=== PATIENT | female | born 1995 | race Caucasian/White ===

== ENCOUNTER 2020-02-14 21:42 | Emergency (ER) | payer OTHER, SELFPAY ==
--- NOTE | ~2020-02-14 | XR_ITS ---
EXAMINATION: XR chest 2V EXAM DATE: 02/14/2020 22:28 INDICATION: Cough for 2 weeks. Congestion. History of asthma. TECHNIQUE: Frontal and lateral projections of the chest obtained and reviewed. There is no prior arun dy for comparison. FINDINGS: The lungs are clear. There are no pleural effusions. The cardiomediastinal silhouette is within normal limits. There is no pneumothorax suspected. The bones and soft tissues are unremarkab le. IMPRESSION: Normal chest x-ray exam. Reviewed, dictated and finalized at location G. IMPRESSION: Normal chest x-ray exam.
[2020-02-14 21:44] VITALS: BP 109/94; PULSE 83; RESP 16; TEMP 36.6; O2SAT 100
[2020-02-14 23:28] VITALS: BP 130/66; PULSE 61; RESP 18; TEMP 36.8; O2SAT 100
--- NOTE | 2020-02-14 23:49 | ED.GENADULT ---
HPI - General Adult General Chief complaint: Unspecified Stated complaint: COUGH X 2 WKS Time Seen by Provider: 02/14/20 23:07 Source: patient Mode of arrival: ambulatory Limitations: no limitations History of Present Illness HPI narrative: This patient is a 24 yo female who presents for evaluation of cough x 2 weeks. PAtient states she has had cough that is intermittently productive for 2 weeks. She also has sinus congestion and drainage. she has been taking over the counter cough medication, claritin and nasal spray without relief. She has a rescue inhaler but she only uses it at night. She denies having wheezing. She denies fever, chills, nausea or vomiting. Onset (ago): week(s) Related Data Allergies Allergy/AdvReac Type Severity Reaction Status Date / Time amoxicillin Allergy Unknown Swelling Verified 02/14/20 22:02 naproxen Allergy Unknown Nausea and Verified 02/14/20 22:02 Vomiting Penicillins Allergy Unknown Swelling Verified 02/14/20 22:02 tramadol Allergy Loss of Verified 02/14/20 22:02 Consciousness Bumble Bee Allergy Unknown Anaphylactic Uncoded 02/14/20 22:02 Shock Wasp Allergy Unknown Anaphylactic Uncoded 02/14/20 22:02 Shock Review of Systems Review of Systems: All systems reviewed & are unremarkable except as noted in HPI and below Constitutional: Constitutional: Denies chills and Denies fever(s) ENT: Reports nasal congestion and Reports nasal discharge Cardiovascular: Cardiovascular: Denies chest pain Respiratory: Respiratory: Reports cough, Denies dyspnea and Denies wheezing Gastrointestinal: Gastrointestinal: Denies abdominal pain and Denies nausea PMFSH Past Medical History Medical History (Updated 02/14/20 @ 23:54 by Colette Snell MD) Asthma Social History Social History (Updated 02/14/20 @ 23:50 by Colette Snell MD) Smoking status: Never smoker Exam Narrative: Exam Narrative: GENERAL: Well-appearing, well-nourished, and in no acute distress. HEAD: Normocephalic, atraumatic EYES: PERRLA and EOMI, conjunctiva clear without discharge NOSE: Nares clear, no rhinorrhea or epistaxis THROAT:Mucous membranes moist, Oropharynx normal without erythema, exudate, peritonsillar swelling or fluctuance NECK: Supple, without lymphadenopathy or mass RESPIRATORY: No respiratory distress, Airway patent, Respirations non-labored, Clear to auscultation without rales, rhonchi or wheeze HEART: Regular rate and rhythm. No murmur heard. Normal peripheral pulses. ABDOMEN: Soft, nontender, nondistended, normal active bowel sounds. No masses. No rebound or guarding, No organomegaly. EXTREMITIES: No edema, normal strength with full range of motion. SKIN: Warm, dry, normal color without rash NEURO: Alert and oriented x3. CN 2-12 grossly intact. No focal deficits. PSYCH: Normal mood and affect. Course Vital Signs Vital signs: Vital Signs Temperature 97.8 F 02/14/20 21:44 Pulse Rate 83 02/14/20 21:44 Respiratory Rate 16 02/14/20 21:44 Blood Pressure 109/94 H 02/14/20 21:44 Pulse Oximetry 100 02/14/20 21:44 Temperature 98.3 F 02/14/20 23:28 Pulse Rate 61 02/14/20 23:28 Respiratory Rate 18 02/14/20 23:28 Blood Pressure 130/66 02/14/20 23:28 Pulse Oximetry 100 02/14/20 23:28 Medical Decision Making Vital Signs Vital Signs: Vital Signs Temperature 97.8 F 02/14/20 21:44 Pulse Rate 83 02/14/20 21:44 Respiratory Rate 16 02/14/20 21:44 Blood Pressure 109/94 H 02/14/20 21:44 Pulse Oximetry 100 02/14/20 21:44 Temperature 98.3 F 02/14/20 23:28 Pulse Rate 61 02/14/20 23:28 Respiratory Rate 18 02/14/20 23:28 Blood Pressure 130/66 02/14/20 23:28 Pulse Oximetry 100 02/14/20 23:28 Imaging Data Radiologist's impression: ITS Impressions Chest X-Ray 02/14/20 22:34 IMPRESSION: Normal chest x-ray exam. Discharge Plan Discharge Clinical Impression: URI (upper respir
== END 2020-02-15 00:10 | disposition home or self-care (01) ==
PROVIDERS: Emergency Provider General Practice
DX: J06.9 Acute upper respiratory infection, unspecified (principal); J45.909 Unspecified asthma, uncomplicated
CPT/HCPCS: 71046; 99283

== ENCOUNTER 2021-06-24 21:36 | Emergency (ER) | payer OTHER, SELFPAY ==
--- NOTE | ~2021-06-24 | CT_ITS ---
EXAMINATION: CT soft tissue neck w con DATE: 06/25/2021 01:50 INDICATION: Left neck pain and swelling. TECHNIQUE: Computed tomography (CT) of the neck was performed with 75 mL Omnipaque-350 intravenous co ntrast. Automated exposure control and iterative reconstruction technique were employed. The dose-madi gth product was 457.20 mGy-cm. COMPARISON: None FINDINGS: There is mild mediastinal and left supraclavicular lymphadenopathy, likely reactive. The ad enoids and palatine tonsils are enlarged. The epiglottis is normal. The cervical carotid arteries are normal. The mastoid air cells are normal. There is complete opacification of right maxillary sinus a nd near complete opacification of the anterior right ethmoid sinuses and right frontal sinus. The tk th demonstrate multiple carious lesions. IMPRESSION: 1. Mild mediastinal and left supraclavicular lymphadenopathy, likely reactive. 2. Enlarged adenoids and palatine tonsils. No abscess. 3. Dental disease. 4. Sinus opacification in a pattern suggesting obstruction of the right ostiomeatal unit. Reviewed, dictated and finalized at location A. IMPRESSION: 1. Mild mediastinal and left supraclavicular lymphadenopathy, likely reactive. 2. Enlarged adenoids and palatine tonsils. No abscess. 3. Dental disease. 4. Sinus opacification in a pattern suggesting obstruction of the right ostiome atal unit.
[2021-06-24 21:49] VITALS: BP 138/83; PULSE 62; RESP 18; TEMP 36.4; O2SAT 100
[2021-06-24] MEDS: ORPHENADRINE CITRATE 100 MG TABLET.ER PO (23:05)
[2021-06-24] MEDS: KETOROLAC 30 MG/ML VIAL (*BKC) IV PUSH (23:05)
[2021-06-24 23:24] LABS: Alanine Aminotransferase 16 U/L (4-35); Albumin Level 4.4 g/dL (3.5-5.1); Alkaline Phosphatase 110 U/L (38-126); Anion Gap 9 mmol/L (8-16); Aspartate Amino Transferase 23 U/L (14-36); Bilirubin,Total 0.3 mg/dL (0.2-1.3); Blood Urea Nitrogen 11 mg/dL (7-17); Calcium 9.5 mg/dL (8.4-10.2); Carbon Dioxide 28 mmol/L (22-30); Chloride 104 mmol/L (98-107); Estimated CRCL calculation 110 ml/min; Estimated Glomerular Filt Rate > 60; Glucose 91 mg/dL (65-110); Potassium 3.7 mmol/L (3.4-5.0); Sodium 141 mmol/L (137-145)
[2021-06-24 23:24] LABS: Basophils Percent Auto 0.4 % (0.2-1.2); Eosinophils Absolute Auto 0.2 K/mm3 (0-0.3); Eosinophils Percent Auto 2.6 % (0-4.4); Hematocrit 35.1 % (37.0-47.0); Hemoglobin 11.3 g/dL (12.0-15.0); Immature Granulocyte Absolute 0.03 K/mm3 (0.00-0.031); Immature Granulocyte Percent A 0.4 % (0-0.5); Lymphocytes Absolute Auto 2.52 K/mm3 (0.9-3.2); Lymphocytes Percent Auto 34.3 % (18.3-44.2); Mean Corpuscular HGB Conc 32.2 g/dl (32-36); Mean Corpuscular Hemoglobin 25.8 pg (26-34); Mean Corpuscular Volume 80.1 fl (80-100); Mean Platelet Volume 9.3 fl (7.4-10.4); Monocytes Absolute Auto 0.5 K/mm3 (0.1-0.6); Monocytes Percent Auto 6.1 % (2.6-8.5); Neutrophils Absolute Auto 4.1 K/mm3 (1.3-6.7); Neutrophils Percent Auto 56.2 % (45.5-73.1); Platelet Count Result 326 k/mm3 (150-375); Red Blood Count 4.38 M/mm3 (4.2-5.4); Red Cell Distribution Width 14.3 % (11.5-14.5); White Blood Count 7.4 K/mm3 (4.5-10.0)
--- NOTE | 2021-06-24 23:41 | ED.GENADULT ---
HPI - General Adult General Chief complaint: Neck Pain/Injury <Lamberto Paiz MD - Last Filed: 06/24/21 23:43> Stated complaint: neck pain <Lamberto Paiz MD - Last Filed: 06/24/21 23:43> Time Seen by Provider: 06/24/21 22:00 <Lamberto Paiz MD - Last Filed: 06/24/21 23:43> History of Present Illness HPI narrative: Patient is a 26-year-old female presents to emergency department with chief complaint of left-sided neck pain. Patient reports that today she started having pain in the muscles in the left side of her neck reports she cannot turn her neck afterwards the patient denies fever reports that she feels as though serviceman knots in her neck could have appeared. The patient states she had no trauma denies fever denies sore throat. Patient denies dysphagia denies stridor. <Lamberto Paiz MD - Last Filed: 06/24/21 23:43> Related Data Allergies/adverse reactions: Allergies Allergy/AdvReac Type Severity Reaction Status Date / Time amoxicillin Allergy Unknown Swelling Verified 02/14/20 22:02 naproxen Allergy Unknown Nausea and Verified 02/14/20 22:02 Vomiting Penicillins Allergy Unknown Swelling Verified 02/14/20 22:02 tramadol Allergy Loss of Verified 02/14/20 22:02 Consciousness Bumble Bee Allergy Unknown Anaphylactic Uncoded 02/14/20 22:02 Shock Wasp Allergy Unknown Anaphylactic Uncoded 02/14/20 22:02 Shock <Lamberto Paiz MD - Last Filed: 06/24/21 23:43> Review of Systems Review of Systems: A 10 system review of systems was completed on the patient and is negative except for what is stated in the HPI. Nursing and ancillary documentation was reviewed. <Lamberto Paiz MD - Last Filed: 06/24/21 23:43> PMFSH Past Medical History Medical History: Medical History Asthma <Lamberto Paiz MD - Last Filed: 06/24/21 23:43> Social History Social History: Social History Smoking status: Never smoker <Lamberto Paiz MD - Last Filed: 06/24/21 23:43> Exam Narrative: GENERAL: Well-appearing, well-nourished, and in no acute distress. HEAD: Normocephalic, atraumatic. EYES: PERRLA and EOMI. ENT: Nares clear, no rhinorrhea or epistaxis. Mucous membranes moist. NECK: There is spasm present in the paraspinous muscles of the left side of the neck consistent with torticollis CHEST: Clear to auscultation. No respiratory distress. HEART: Regular rate and rhythm. No murmur heard. Normal peripheral pulses. ABDOMEN: Soft, nontender, nondistended, normal active bowel sounds. EXTREMITIES: Normal range of motion. No edema. SKIN: Warm, dry, no rash. NEURO: No focal deficits. Alert and oriented x3. PSYCH: Normal mood and affect. <Lamberto Paiz MD - Last Filed: 06/24/21 23:43> Course Vital Signs Vital signs: Vital Signs Temperature 36.4 C 06/24/21 21:49 Pulse Rate 62 06/24/21 21:49 Respiratory Rate 18 06/24/21 21:49 Blood Pressure 138/83 06/24/21 21:49 Pulse Oximetry 100 06/24/21 21:49 Temperature 36.4 C 06/24/21 21:49 Pulse Rate 62 06/24/21 21:49 Respiratory Rate 18 06/24/21 21:49 Blood Pressure 138/83 06/24/21 21:49 Pulse Oximetry 100 06/24/21 21:49 <Lamberto Paiz MD - Last Filed: 06/24/21 23:43> Medical Decision Making Vital Signs Vital Signs: Vital Signs Temperature 36.4 C 06/24/21 21:49 Pulse Rate 62 06/24/21 21:49 Respiratory Rate 18 06/24/21 21:49 Blood Pressure 138/83 06/24/21 21:49 Pulse Oximetry 100 06/24/21 21:49 Temperature 36.4 C 06/24/21 21:49 Pulse Rate 62 06/24/21 21:49 Respiratory Rate 18 06/24/21 21:49 Blood Pressure 138/83 06/24/21 21:49 Pulse Oximetry 100 06/24/21 21:49 <Lamberto Paiz MD - Last Filed: 06/24/21 23:43
[2021-06-25 01:03] LABS: Add Urine Microscopic? YES; Appearance Urine Cloudy (Clear); Bacteria Urine Trace /hpf; Bilirubin Urine Negative (Negative); Blood Urine Negative (Negative); Color Urine Yellow (Yellow); Glucose Urine UA Negative (Negative); Ketones Urine Negative (Negative); Leukocyte Esterase Ur Negative LEU/UL (Negative); Mucus Urine Few /lpf; Nitrate Urine Negative (Negative); Protein Urine Negative (Negative); Specific Grav Ur 1.026 (1.001-1.035); Squamous Epithelial Cell Urine Few /hpf (Few)
[2021-06-25] MEDS: HYDROcodone/acetaminophen (*CRX) 5-325 MG TABLET 1 TAB PO (01:26)
[2021-06-25 03:18] VITALS: BP 136/72; PULSE 62; RESP 16; O2SAT 100
== END 2021-06-25 03:28 | disposition home or self-care (01) ==
PROVIDERS: Emergency Medicine; Emergency Provider Emergency Medicine
DX: M43.6 Torticollis (principal); J45.909 Unspecified asthma, uncomplicated
CPT/HCPCS: 36415; 70491; 80053; 81001; 81025; 85025; 87081; 87880; 96374; 99284; A9270; J1885; Q9967

== ENCOUNTER 2021-07-13 12:47 | Emergency (ER) | payer OTHER, SELFPAY ==
--- NOTE | ~2021-07-13 | XR_ITS ---
XR chest 1V portable DATE: 07/13/2021 14:30 INDICATION: Chest pain, shortness of breath, cough, congestion, sore throat TECHNIQUE: Portable upright chronic AP chest on 07/23/2021 at 1422 hours COMPARISON: 02/14/2020 PA and lateral chest FINDINGS: No pulmonary infiltrate or consolidation, pleural effusion or pulmonary vascular congestion or pneumothorax is detected. The cardiac and mediastinal sweats and included skeletal structures are unremarkable. IMPRESSION: No active cardiopulmonary disease Reviewed, dictated and finalized at location A.
--- NOTE | ~2021-07-13 | CT_ITS ---
EXAMINATION: CTA chest PE protocol DATE: 07/13/2021 17:50 INDICATION: Shortness of breath. Elevated d-dimer. TECHNIQUE: Computed tomography (CT) pulmonary angiogram of the chest was performed with 100 mL Omnipa que-350 intravenous contrast. Additional 3D reconstructions utilizing coronal maximum intensity proje ction (MIP) were performed. Automated exposure control and iterative reconstruction technique were em ployed. The dose-length product was 478.13 mGy-cm. COMPARISON: CT neck dated 06/25/2021 FINDINGS: Good contrast opacification of the pulmonary arteries. There is mild streak artifact from dense contr ast in the superior vena cava and right atrium. No significant motion yielding diagnostic quality arun dy which demonstrates no pulmonary embolism. No pneumonia, pulmonary edema or other pulmonary infiltr ates. There are couple small triangular intrafissural lymph nodes along the right major fissure. No p leural effusion or pneumothorax. Heart size is normal. No pericardial effusion. Thoracic aorta is nor mal in caliber with no dissection. No pathologically enlarged thoracic lymphadenopathy. In seen is re sidual thymic tissue in the anterior mediastinum. Visualized upper abdomen] bones are unremarkable. IMPRESSION: 1. No pulmonary embolism or other acute cardiopulmonary disease. Reviewed, dictated and finalized at location A.
[2021-07-13 12:53] VITALS: BP 125/65; PULSE 68; RESP 18; TEMP 36.8; O2SAT 97
--- NOTE | 2021-07-13 14:13 | ECG_ITS ---
Measurements Intervals [place] Rate: 59 P: 23 SD: 146 QRS: 24 QRSD: 88 T: 29 QT: 392 QTc: 390 Interpretive Statements SINUS BRADYCARDIA WITH SINUS ARRHYTHMIA BASELINE WANDER- I, II, AVR, AVL BORDERLINE ECG Electronically Signed On 07-13-2021 15:12:52 CDT by Alex Brenner D.O.
--- NOTE | 2021-07-13 14:33 | ED.URI ---
HPI - URI/Sore Throat General Chief Complaint: Upper Respiratory Infection <KRISSY Rubio Last Filed: 07/13/21 18:36> Stated Complaint: cough, sore throat <KRISSY Rubio Last Filed: 07/13/21 18:36> Time Seen by Provider: 07/13/21 13:41 <KRISSY Rubio Last Filed: 07/13/21 18:36> Source: patient <KRISSY Rubio Last Filed: 07/13/21 18:36> Mode of arrival: ambulatory <KRISSY Rubio Last Filed: 07/13/21 18:36> Limitations: no limitations <KRISSY Rubio Last Filed: 07/13/21 18:36> History of Present Illness HPI Narrative: This is a 26 year old female that presents to the ER for cold symptoms present over the last couple of days. Reports cough, congestion, sore throat and subjective fever. Reports history of asthma. She has been taking her Albuterol inhaler with little relief. Also reports chest pain with coughing and deep breathing. Reports her sputum is occasionally blood tinged. Denies lower extremity edema. <KRISSY Rubio Last Filed: 07/13/21 18:36> Related Data Home Medications: Home Medications Medication Instructions Recorded Confirmed No Home Medications 07/13/21 07/13/21 <KRISSY Rubio Last Filed: 07/13/21 18:36> Allergies/Adverse Reactions: Allergies Allergy/AdvReac Type Severity Reaction Status Date / Time amoxicillin Allergy Unknown Swelling Verified 07/13/21 12:55 naproxen Allergy Unknown Nausea and Verified 07/13/21 12:55 Vomiting Penicillins Allergy Unknown Swelling Verified 07/13/21 12:55 tramadol Allergy Loss of Verified 07/13/21 12:55 Consciousness Bumble Bee Allergy Unknown Anaphylactic Uncoded 07/13/21 12:55 Shock Wasp Allergy Unknown Anaphylactic Uncoded 07/13/21 12:55 Shock <KRISSY Rubio Last Filed: 07/13/21 18:36> Review of Systems Review of Systems: CONSTITUTIONAL: Reports subjective fever ENT: Reports rhinorrhea, congestion, sore throat CARDIOVASCULAR: Reports chest pain RESPIRATORY: Reports cough and dyspnea. <Faustina Easton PA-C - Last Filed: 07/13/21 18:36> All systems reviewed & are unremarkable except as noted in HPI and below <Faustina Easton PA-C - Last Filed: 07/13/21 18:36> PMFSH Past Medical History Medical History: Medical History Asthma <Faustina Easton PA-C - Last Filed: 07/13/21 18:36> Social History Social History: Social History Smoking status: Never smoker <Faustina Easton PA-C - Last Filed: 07/13/21 18:36> Exam Narrative: GENERAL: Well-appearing, well-nourished, and in no acute distress. HEAD: Normocephalic, atraumatic. EYES: EOMI. ENT: Nares clear, no rhinorrhea or epistaxis. Mucous membranes moist. Oropharynx without tonsillar hypertrophy exudate or other lesions. Bilateral TMs pearly luo non-bulging NECK: Supple. No adenopathy or masses. CHEST: Clear to auscultation. No respiratory distress. No wheezes rales or rhonchi HEART: Regular rate and rhythm. No murmur heard. Normal peripheral pulses. EXTREMITIES: Normal range of motion. No edema. SKIN: Warm, dry, no rash. NEURO: No focal deficits. Alert and oriented x3. PSYCH: Normal mood and affect <Faustina Easton PA-C - Last Filed: 07/13/21 18:36> Course Vital Signs Vital signs: Vital Signs Temperature 36.8 C 07/13/21 12:53 Pulse Rate 68 07/13/21 12:53 Respiratory Rate 18 07/13/21 12:53 Blood Pressure 125/65 07/13/21 12:53 Pulse Oximetry 97 07/13/21 12:53 Temperature 36.8 C 07/13/21 12:53 Pulse Rate 78 07/13/21 18:51 Respiratory Rate 18 07/13/21 18:51 Blood Pressure 130/72 07/13/21 18:51 Pulse Oximetry 99 07/13/21 18:51 <Faustina Easton PA-C - Last Filed: 07/13/21 18:36> MDM - URI/Sore Throat MDM Narrative Medical decision making narrative: Pat
[2021-07-13] MEDS: ALBUTEROL SULFATE (*SP) AEROSOL 1 PUFF 4 PUFF INHALATION (15:08)
[2021-07-13 15:40] LABS: Basophils Percent Auto 0.3 % (0.2-1.2); Eosinophils Absolute Auto 0.2 K/mm3 (0-0.3); Eosinophils Percent Auto 2.6 % (0-4.4); Hematocrit 37.9 % (37.0-47.0); Hemoglobin 12.4 g/dL (12.0-15.0); Immature Granulocyte Absolute 0.02 K/mm3 (0.00-0.031); Immature Granulocyte Percent A 0.3 % (0-0.5); Lymphocytes Absolute Auto 1.77 K/mm3 (0.9-3.2); Lymphocytes Percent Auto 30.4 % (18.3-44.2); Mean Corpuscular HGB Conc 32.7 g/dl (32-36); Mean Corpuscular Volume 79.5 fl (80-100); Mean Platelet Volume 9.2 fl (7.4-10.4); Monocytes Absolute Auto 0.5 K/mm3 (0.1-0.6); Monocytes Percent Auto 8.1 % (2.6-8.5); Neutrophils Absolute Auto 3.4 K/mm3 (1.3-6.7); Neutrophils Percent Auto 58.3 % (45.5-73.1); Platelet Count Result 232 k/mm3 (150-375); Red Blood Count 4.77 M/mm3 (4.2-5.4); White Blood Count 5.8 K/mm3 (4.5-10.0)
[2021-07-13 15:50] LABS: INR 0.9; Partial Thromboplastin Time 30.4 SECONDS (22.3-36.8); Prothrombin Time 12.2 Seconds (11.1-14.7)
[2021-07-13 15:53] LABS: Anion Gap 11 mmol/L (8-16); Blood Urea Nitrogen 8 mg/dL (7-17); Calcium 9.5 mg/dL (8.4-10.2); Carbon Dioxide 21 mmol/L (22-30); Chloride 106 mmol/L (98-107); Estimated CRCL calculation 149 ml/min; Estimated Glomerular Filt Rate > 60; Glucose 97 mg/dL (65-110); Potassium 3.8 mmol/L (3.4-5.0); Sodium 138 mmol/L (137-145)
[2021-07-13 16:05] LABS: Troponin I < 0.012 ng/mL (0.000-0.034)
[2021-07-13 16:21] LABS: D Dimer 0.68 ug/mL (<0.48)
[2021-07-13 17:40] VITALS: BP 122/55; PULSE 80; RESP 18; O2SAT 99
[2021-07-13 18:51] VITALS: BP 130/72; PULSE 78; RESP 18; O2SAT 99
[2021-07-15 20:20] LABS: SARS-CoV-2 RNA PCR Negative
== END 2021-07-13 18:53 | disposition home or self-care (01) ==
PROVIDERS: Physician Assistant; Emergency Provider Emergency Medicine; PCP Emergency Medicine
DX: B34.9 Viral infection, unspecified (principal); Z20.822 Contact with and (suspected) exposure to COVID-19
CPT/HCPCS: 36415; 71045; 71275; 80048; 81025; 84484; 85025; 85380; 85610; 85730; 87081; 87880; 93005; 99284; A9270; C9803; Q9967; U0003; U0005

== ENCOUNTER 2021-11-28 01:02 | Emergency (ER) | payer OTHER, SELFPAY ==
--- NOTE | ~2021-11-28 | XR_ITS ---
EXAMINATION: XR knee LT 3V DATE: 11/28/2021 01:41 INDICATION: Left knee injury. TECHNIQUE: 3 views of left knee were obtained. COMPARISON: None. FINDINGS: Bone alignment is normal. No fracture. Joint spaces are well maintained. There is no knee j oint effusion. IMPRESSION: 1. Normal left knee. Reviewed, dictated and finalized at location E. [employer]ICIAN [employer] IMPRESSION: 1. Normal left knee.
--- NOTE | ~2021-11-28 | XR_ITS ---
EXAMINATION: XR ankle LT min 3V DATE: 11/28/2021 01:41 INDICATION: Left ankle injury. TECHNIQUE: 4 views of left ankle were obtained. COMPARISON: None. FINDINGS: Bone alignment is normal. No fracture. Joint spaces are well maintained. There is ankle sof t tissue swelling. IMPRESSION: 1. No fracture. Reviewed, dictated and finalized at location E. LUTION AGENT IMPRESSION: 1. No fracture.
[2021-11-28 01:15] VITALS: BP 117/60; PULSE 96; RESP 16; TEMP 36.2; O2SAT 99
--- NOTE | 2021-11-28 01:33 | ED.LOWEXIN ---
HPI - Extremity Injury (Lower) General Chief Complaint: Extremity Injury, Lower Stated Complaint: fall left leg injury Time Seen by Provider: 11/28/21 01:20 Source: patient History of Present Illness HPI Narrative: Patient presents after ground-level fall reports she was walking to the ER and slipped on the ice out front twisting her left ankle and landing on her left knee. Reports a burning sensation in her ankle worse with moving her ankle. Is unsure if her hit her head she denies any loss of consciousness denies any focal numbness or weakness. Related Data Home Medications Medication Instructions Recorded Confirmed No Home Medications 07/13/21 07/13/21 Allergies Allergy/AdvReac Type Severity Reaction Status Date / Time amoxicillin Allergy Unknown Swelling Verified 11/28/21 01:24 naproxen Allergy Unknown Nausea and Verified 11/28/21 01:24 Vomiting Penicillins Allergy Unknown Swelling Verified 11/28/21 01:24 ketorolac [From Toradol] AdvReac Agitated Verified 11/28/21 01:25 Bumble Bee Allergy Unknown Anaphylactic Uncoded 11/28/21 01:24 Shock Wasp Allergy Unknown Anaphylactic Uncoded 11/28/21 01:24 Shock Review of Systems Review of Systems: CONSTITUTIONAL: Denies fever, chills, or sweats. EYES: Denies visual changes, redness, or discharge. ENT: Denies rhinorrhea, congestion, sore throat, or otalgia. CARDIOVASCULAR: Denies chest pain, palpitations, or edema. RESPIRATORY: Denies cough or dyspnea. GASTROINTESTINAL: Denies abdominal pain, nausea, vomiting, or diarrhea. GENITOURINARY: Denies dysuria or hematuria. SKIN: Denies rash or itching. MUSCULOSKELETAL: Denies back pain, or myalgia. NEUROLOGIC: Denies headache, numbness, dizziness, or weakness. PSYCHIATRIC: Denies anxiety or depression. All systems reviewed & are unremarkable except as noted in HPI and below PMFSH Past Medical History Medical History Asthma Social History Social History Smoking status: Never smoker Exam Narrative: GENERAL: Well-appearing, well-nourished, and in no acute distress. HEAD: Normocephalic, atraumatic. EYES: PERRLA and EOMI. ENT: Nares clear, no rhinorrhea or epistaxis. Mucous membranes moist. NECK: Supple. No masses. No JVD EXTREMITIES: Normal range of motion of the left ankle and knee due to pain there is ecchymosis and abrasion on the anterior aspect of the left ankle there is ecchymosis and a small abrasion over the anterior aspect of the left knee there is no obvious deformity there is diffuse tenderness to both the ankle and the knee. SKIN: Warm, dry, no rash. NEURO: No focal deficits. Alert and oriented x3. PSYCH: Normal mood and affect. Course Reevaluation(s) Reevaluation #1: Patient resting comfortably results and plan reviewed with patient. Patient is comfortable outpatient plan. Date: 11/28/21 Time: 01:55 Vital Signs Vital signs: Vital Signs Temperature 36.2 C L 11/28/21 01:15 Pulse Rate 96 11/28/21 01:15 Respiratory Rate 16 11/28/21 01:15 Blood Pressure 117/60 11/28/21 01:15 Pulse Oximetry 99 11/28/21 01:15 Temperature 36.2 C L 11/28/21 01:15 Pulse Rate 86 11/28/21 02:06 Respiratory Rate 16 11/28/21 02:06 Blood Pressure 141/68 H 11/28/21 02:06 Pulse Oximetry 99 11/28/21 02:06 MDM - Extremity Injury (Lower) MDM Narrative Medical decision making narrative: H&P as above, vss, pt looks clinically well, exam without focal neurological deficits, imaging without acute fracture, additional labs/img considered, symptomatic relief available as needed, on reevaluation pt continues to looks clinically well. Suspect soft tissue injury such as sprain or contusion, dns fracture, dislocation, major neurovascular compromise. plan to tx/monitor as op w/ pcm f/u findings/plan discussed with pt, pt agree/comfortable with plan, return precautions given Imaging Data Atte
[2021-11-28] MEDS: ACETAMINOPHEN 500 MG TABLET 1000 MG PO (01:37)
[2021-11-28 02:06] VITALS: BP 141/68; PULSE 86; RESP 16; O2SAT 99
== END 2021-11-28 02:10 | disposition home or self-care (01) ==
PROVIDERS: Emergency Provider Emergency Medicine
DX: S93.402A Sprain of unspecified ligament of left ankle, initial encounter (principal); S96.912A Strain of unspecified muscle and tendon at ankle and foot level, left foot, initial encounter; S80.02XA Contusion of left knee, initial encounter; J45.909 Unspecified asthma, uncomplicated; W00.0XXA Fall on same level due to ice and snow, initial encounter
CPT/HCPCS: 73562; 73610; 99284; A9270

== ENCOUNTER 2022-01-11 17:43 | Emergency (ER) | payer OTHER, SELFPAY ==
[2022-01-11] VITALS (8 sets, daily range): BP systolic 106–146; BP diastolic 52–93; PULSE 60–78; RESP 18; TEMP 35.7–36.8; O2SAT 98–100
--- NOTE | ~2022-01-11 | US_ITS ---
EXAMINATION: Ultrasound OB less than 14 weeks with transvaginal. CLINICAL HISTORY: Left-sided pain. TECHNIQUE: Sonography of the pelvis was performed by transvaginal techniques. COMPARISON: No recent exams. RESULT: Uterus: - Orientation: Anteverted - Size: 10.2 x 6.8 x 5.4 cm - Myometrium: homogeneous echogenicity . Likely cervical nabothian cyst. Gestation: - Intrauterine gestational sac: Possible - Mean Sac Diameter: 0.33 cm, corresponding gestational age 5 week 0 days - Yolk sac: Not seen. - Embryo: Not seen. -Subgestational hematoma: Absent Right ovary: - Size : 2.9 x 3.3 x 2.1 cm - Normal sonographic appearance with physiologic follicles. Vascular flow is present. Left ovary: - Size: 3.0 x 2.6 x 2.2 cm - Normal sonographic appearance with physiologic follicles. Vascular flow is present. Pelvis free fluid: Trace free pelvic fluid, in the physiologic range. IMPRESSION: Identification of a possible early intrauterine gestational sac. Estimated Gestational Age: 5 weeks, 0 days by mean sac diameter. Recommend continued ureter and pelvic ultrasound follow-up to confirm these findings. Reviewed, dictated and finalized at location [facility]. IMPRESSION: Identification of a possible early intrauterine gestational sac. Estimated Gestational Age: 5 weeks, 0 days by mean sac diameter. Recommend continued ureter and pelvic ultrasound follow-up to confirm these fin dings.
--- NOTE | 2022-01-11 17:58 | ED.NAVMDI ---
HPI - Nausea/Vomiting/Diarrhea General Chief complaint: Nausea/Vomiting/Diarrhea Stated complaint: preg, vomiting Time Seen by Provider: 01/11/22 17:47 Source: RN notes reviewed History of Present Illness HPI Narrative: Patient presents to the emergency department from home for multiple complaints. Patient states that she has had several home tests. She states that she is unsure of her last menstrual cycle and states that she has not followed up with [employer] to this point she states that she is G8, P5. She states that she has been dizzy since she opened her eyes this morning she states that dizziness is worse when she gets up she states that she did proceed to donate plasma today at 2 PM and that her dizziness has been worse since that time. Patient also notes that she has been having some pain in her left lower back for the past 4 days the pain is worse when she coughs and bends over she also notes some pain with urination she states that she was told that she was having some kidney dysfunction on her last but cannot give any more history as to the kidney dysfunction she denies having fevers or chills chest pain shortness of breath she states that she did have one episode of nausea vomiting today but denies any current nausea Related Data Home Medications Medication Instructions Recorded Confirmed No Home Medications 07/13/21 07/13/21 Allergies Allergy/AdvReac Type Severity Reaction Status Date / Time amoxicillin Allergy Unknown Swelling Verified 11/28/21 01:24 naproxen Allergy Unknown Nausea and Verified 11/28/21 01:24 Vomiting Penicillins Allergy Unknown Swelling Verified 11/28/21 01:24 ketorolac [From Toradol] AdvReac Agitated Verified 11/28/21 01:25 Bumble Bee Allergy Unknown Anaphylactic Uncoded 11/28/21 01:24 Shock Wasp Allergy Unknown Anaphylactic Uncoded 11/28/21 01:24 Shock Review of Systems Review of Systems: Gen.: Denies fevers or chills Eyes: Denies eye pain or visual change ENT: Denies congestion Respiratory: Denies shortness of breath or cough CV: Denies chest pain or palpitations GI: Denies abdominal pain reports nausea vomiting x1 1 denies diarrhea denies burning, urgency, frequency or hematuria Musculoskeletal: Denies back pain or muscle pain Neuro: Reports dizziness Skin: Denies rash Except as documented, all other systems reviewed and negative PMFSH Past Medical History Medical History Asthma Social History Social History Smoking status: Never smoker Exam Narrative: APPEARANCE: No acute distress, nontoxic, resting in bed EYES: EOMI, PERRL HEENT: Normocephalic, atraumatic, OMM RESPIRATORY: No respiratory distress Clear to auscultation bilaterally with no rhonchi wheezing or rales. CARDIOVASCULAR: Regular rate and rhythm without murmurs rubs or gallops. ABDOMINAL: Soft, nontender, nondistended, no rebound or guarding Back: No midline thoracic lumbar tenderness palpation tender palpation over left paravertebral cells L2-4 pain increased with forward flexion rotation of the torso MUSCULOSKELETAl: Moves all extremities. No clubbing, cyanosis or edema. NEURO: Awake and alert. Following commands, speech normal, no focal deficits SKIN:: Warm, dry. No rashes lesions or abrasions PSYCHIATRIC: Normal affect/mood, Course Course Emergency Course: Patient states she is feeling much better at this time able to get up with no dizziness Called and discussed with Dr. Martinez presentation work-up agrees plan for discharge follow-up as an outpatient Discussed with patient results of workup and diagnosis. Discussed need for follow-up with primary care, proper use of medication, and reasons to return to the emergency department. Patient understands and agrees to current treatment plan Vital Signs Vital signs: Vital Signs Temperature 96.3 F L 01/11/22 17:47 Pul
[2022-01-11 18:02] LABS: Basophils Percent Auto 0.4 % (0.2-1.2); Eosinophils Absolute Auto 0.1 K/mm3 (0-0.3); Eosinophils Percent Auto 1.4 % (0-4.4); Hemoglobin 13.3 g/dL (12.0-15.0); Immature Granulocyte Absolute 0.03 K/mm3 (0.00-0.031); Immature Granulocyte Percent A 0.3 % (0-0.5); Lymphocytes Absolute Auto 2.28 K/mm3 (0.9-3.2); Lymphocytes Percent Auto 22.6 % (18.3-44.2); Mean Corpuscular HGB Conc 31.7 g/dl (32-36); Mean Corpuscular Hemoglobin 26.2 pg (26-34); Mean Corpuscular Volume 82.7 fl (80-100); Mean Platelet Volume 9.2 fl (7.4-10.4); Monocytes Absolute Auto 0.5 K/mm3 (0.1-0.6); Neutrophils Absolute Auto 7.1 K/mm3 (1.3-6.7); Neutrophils Percent Auto 70.3 % (45.5-73.1); Platelet Count Result 286 k/mm3 (150-375); Red Blood Count 5.08 M/mm3 (4.2-5.4); Red Cell Distribution Width 16.2 % (11.5-14.5); White Blood Count 10.1 K/mm3 (4.5-10.0)
[2022-01-11] MEDS: SODIUM CHLORIDE 0.9% IV 1,000 ML 999 ML IV CONT ×2 (18:12→20:13)
[2022-01-11 18:13] LABS: Alanine Aminotransferase 14 U/L (4-35); Albumin Level 3.6 g/dL (3.5-5.1); Alkaline Phosphatase 68 U/L (38-126); Anion Gap 3 mmol/L (8-16); Aspartate Amino Transferase 27 U/L (14-36); Bilirubin,Total 0.4 mg/dL (0.2-1.3); Blood Urea Nitrogen 7 mg/dL (7-17); Calcium 8.4 mg/dL (8.4-10.2); Carbon Dioxide 25 mmol/L (22-30); Chloride 107 mmol/L (98-107); Estimated CRCL calculation 150 ml/min; Estimated Glomerular Filt Rate > 60; Glucose 120 mg/dL (65-110); Lipase 37 U/L (23-300); Potassium 3.7 mmol/L (3.4-5.0); Sodium 135 mmol/L (137-145)
[2022-01-11 18:22] LABS: Add Urine Microscopic? YES; Appearance Urine Cloudy (Clear); Bacteria Urine Trace /hpf; Bilirubin Urine Negative (Negative); Blood Urine Negative (Negative); Color Urine Amber (Yellow); Glucose Urine UA Negative (Negative); Ketones Urine Negative (Negative); Leukocyte Esterase Ur Negative LEU/UL (Negative); Mucus Urine Rare /lpf; Nitrate Urine Negative (Negative); Protein Urine Negative (Negative); RBC Urine 0-2 /hpf (0-2); Specific Grav Ur 1.023 (1.001-1.035); Squamous Epithelial Cell Urine Moderate /hpf (Few); Transitional Epi Cells Urine Rare /hpf (None Seen); Urobilinogen Urine Negative mg/dL (<2.0); WBC Urine 0-3 /hpf
[2022-01-11] MEDS: ONDANSETRON INJ 4 MG/2 ML VIAL IV PUSH (18:58)
--- NOTE | 2022-01-11 19:07 | PC.NURSE ---
Pt to [facility] Via w/c
--- NOTE | 2022-01-11 19:30 | PC.NURSE ---
Pt return from [facility]
--- NOTE | 2022-01-11 20:08 | PC.NURSE ---
ERP Darnell at bedside to evaluate pt.
== END 2022-01-11 21:33 | disposition home or self-care (01) ==
PROVIDERS: Emergency Provider Emergency Medicine; PCP Emergency Medicine
DX: O26.891 Other specified pregnancy related conditions, first trimester (principal); R42 Dizziness and giddiness; O99.891 Other specified diseases and conditions complicating pregnancy; M54.50 Low back pain, unspecified; Z3A.01 Less than 8 weeks gestation of pregnancy
CPT/HCPCS: 36415; 76801; 76817; 80053; 81001; 81025; 83690; 84702; 85025; 96361; 96365; 96375; 99284; J0131; J2405; J7030

== ENCOUNTER 2022-01-15 | Emergency (ER) | payer OTHER, SELFPAY ==
[2022-01-15 00:08] VITALS: BP 117/67; PULSE 62; RESP 14; TEMP 37; O2SAT 99
--- NOTE | 2022-01-15 00:30 | ED.GENADULT ---
HPI - General Adult General Chief complaint: Upper Respiratory Infection Stated complaint: Requesting covid-19 test Time Seen by Provider: 01/15/22 00:22 Source: patient Mode of arrival: ambulatory Limitations: no limitations History of Present Illness HPI narrative: 26-year-old female presents emergency room secondary to some nausea vomiting. She was at work and her partner made her leave work and come and told her that she cannot come back to work until she has a negative Covid test. She is fully vaccinated for Covid. She is currently and is a 8 para 6. She has had no significant cough congestion. She has had no diarrhea. She has no other complaints at this time. Related Data Allergies Allergy/AdvReac Type Severity Reaction Status Date / Time amoxicillin Allergy Unknown Swelling Verified 11/28/21 01:24 naproxen Allergy Unknown Nausea and Verified 11/28/21 01:24 Vomiting Penicillins Allergy Unknown Swelling Verified 11/28/21 01:24 ketorolac [From Toradol] AdvReac Agitated Verified 11/28/21 01:25 Bumble Bee Allergy Unknown Anaphylactic Uncoded 11/28/21 01:24 Shock Wasp Allergy Unknown Anaphylactic Uncoded 11/28/21 01:24 Shock Review of Systems Review of Systems: CONSTITUTIONAL: Denies fever, chills, or sweats. EYES: Denies visual changes, redness, or discharge. ENT: Denies rhinorrhea, congestion, sore throat, or otalgia. CARDIOVASCULAR: Denies chest pain, palpitations, or edema. RESPIRATORY: Denies cough or dyspnea. GASTROINTESTINAL: Patient got some nausea vomiting. Denies diarrhea. No abdominal pain. GENITOURINARY: Denies dysuria or hematuria. SKIN: Denies rash or itching. MUSCULOSKELETAL: Denies back pain, joint pain, or myalgia. NEUROLOGIC: Denies headache, numbness, or weakness. PSYCHIATRIC: Denies anxiety or depression. [facility] Past Medical History Medical History Asthma Social History Social History Smoking status: Never smoker Exam Narrative: APPEARANCE: Well appearing, no pain or distress, well-nourished. Head normocephalic and atraumatic. EYES: PERRLA/EOMI, conjunctivae very clear. NOSE: Normal with no drainage EARS:TMS clear Abisai Francois, with good light reflex. THROAT: Pharynx clear, no exudate. NECK: Supple. No adenopathy, no masses. RESPIRATORY: Airway patent, respirations nonlabored. Clear to auscultation bilaterally, no rales, rhonchi, wheezing. CARDIOVASCULAR: Regular rate and rhythm without murmurs, rubs, or gallops. ABDOMINAL: Soft, nontender, nondistended, no hepatosplenomegaly Musculoskeletal: Moves all extremities. Strength/ROM intact, No edema, No calf tenderness. NEURO: Alert. Cranial nerves II through XII intact. Normal gait. Good coordination. Nonfocal examination. SKIN:: Warm, dry. Normal Color PSYCHIATRIC: Normal affect/mood, normal interaction Course Vital Signs Vital signs: Vital Signs Temperature 98.6 F 01/15/22 00:08 Pulse Rate 62 01/15/22 00:08 Respiratory Rate 14 01/15/22 00:08 Blood Pressure 117/67 01/15/22 00:08 Pulse Oximetry 99 01/15/22 00:08 Temperature 98.6 F 01/15/22 00:08 Pulse Rate 62 01/15/22 00:08 Respiratory Rate 14 01/15/22 00:08 Blood Pressure 117/67 01/15/22 00:08 Pulse Oximetry 99 01/15/22 00:08 Medical Decision Making MDM Narrative Medical decision making narrative: Patient's Covid test is negative. Patient can follow-up with her primary physician. Told her to just be on a clear liquid diet for the next 12 hours or so secondary to this vomiting and slowly advance her diet back. Vital Signs Vital Signs: Vital Signs Temperature 98.6 F 01/15/22 00:08 Pulse Rate 62 01/15/22 00:08 Respiratory Rate 14 01/15/22 00:08 Blood Pressure 117/67 01/15/22 00:08 Pulse Oximetry 99 01/15/22 00:08 Temperature 98.6 F 01/15/22 00:08 Pulse Rate 62 01/15/22 00:08 Resp
[2022-01-15 01:47] LABS: SARS-CoV-2 RNA PCR Negative
[2022-01-15 02:17] VITALS: BP 116/60; PULSE 62; RESP 14; O2SAT 99
== END 2022-01-15 02:17 | disposition home or self-care (01) ==
PROVIDERS: Emergency Provider Emergency Medicine; PCP Emergency Medicine
DX: O99.611 Diseases of the digestive system complicating pregnancy, first trimester (principal); K52.9 Noninfective gastroenteritis and colitis, unspecified; Z20.822 Contact with and (suspected) exposure to COVID-19; Z3A.01 Less than 8 weeks gestation of pregnancy
CPT/HCPCS: 99283; C9803; U0003; U0005

== ENCOUNTER 2022-05-18 00:29 | Emergency (ER) | payer OTHER, SELFPAY ==
[2022-05-18 00:37] VITALS: BP 130/64; PULSE 66; RESP 16; TEMP 36.9; O2SAT 100
--- NOTE | 2022-05-18 00:49 | ED.URI ---
HPI - URI/Sore Throat General Chief Complaint: Upper Respiratory Infection Stated Complaint: COVID symptoms Time Seen by Provider: 05/18/22 00:30 History of Present Illness HPI Narrative: 27-year-old female presents emergency room with symptoms highly indicative of COVID. She is currently about 25 weeks gestation. She only got 1 COVID shot and she had some swelling to her arm never went back and got a complete vaccination. She would had some work done in her apartment and then she received a phone call yesterday by the senior research manager that states that the maintenance individual came and tested positive for COVID. She is got a lot of congestion runny nose. She is lost her sense of taste. She states she feels short of breath from all the coughing. Related Data Allergies Allergy/AdvReac Type Severity Reaction Status Date / Time amoxicillin Allergy Unknown Swelling Verified 05/18/22 00:45 naproxen Allergy Unknown Nausea and Verified 05/18/22 00:45 Vomiting Penicillins Allergy Unknown Swelling Verified 05/18/22 00:45 ketorolac [From Toradol] AdvReac Agitated Verified 05/18/22 00:45 Bumble Bee Allergy Unknown Anaphylactic Uncoded 05/18/22 00:45 Shock Wasp Allergy Unknown Anaphylactic Uncoded 05/18/22 00:45 Shock Review of Systems Review of Systems: CONSTITUTIONAL: Denies fever, chills, or sweats. EYES: Denies visual changes, redness, or discharge. ENT: Nasal rhinorrhea and congestion. CARDIOVASCULAR: Denies chest pain, palpitations, or edema. RESPIRATORY: Cough with associated shortness of breath GASTROINTESTINAL: Denies abdominal pain, nausea, vomiting, or diarrhea. GENITOURINARY: Denies dysuria or hematuria. SKIN: Denies rash or itching. MUSCULOSKELETAL: Denies back pain, joint pain, or myalgia. NEUROLOGIC: Denies headache, numbness, or weakness. PSYCHIATRIC: Denies anxiety or depression. [facility] Past Medical History Medical History Asthma No pertinent past medical history Social History Social History Smoking status: Never smoker Exam Narrative: APPEARANCE: Well appearing, no pain or distress, well-nourished. Head Normocephalic and atraumatic. EYES: PERRLA/EOMI, conjunctivae clear. NOSE: Nasal rhinorrhea EARS:TMS clear with Francois, with good light reflex. THROAT: Pharynx clear, no exudate. NECK: Supple. No adenopathy, no masses. RESPIRATORY: Airway patent, respirations nonlabored. Clear to auscultation bilaterally, no rales, rhonchi, wheezing. CARDIOVASCULAR: Regular rate and rhythm without murmurs, rubs, or gallops. ABDOMINAL: Soft, nontender, nondistended, no hepatosplenomegaly Musculoskeletal: Moves all extremities. Strength/ROM intact, No edema, No calf tenderness. NEURO: Alert. Cranial nerves II through XII intact. Normal gait. Good coordination. Nonfocal examination. SKIN:: Warm, dry. Normal Color PSYCHIATRIC: Normal affect/mood, normal interaction Course Vital Signs Vital signs: Vital Signs Temperature 98.5 F 05/18/22 00:37 Pulse Rate 66 05/18/22 00:37 Respiratory Rate 16 05/18/22 00:37 Blood Pressure 130/64 05/18/22 00:37 Pulse Oximetry 100 05/18/22 00:37 Oxygen Delivery Room Air 05/18/22 00:37 Temperature 98.5 F 05/18/22 00:37 Pulse Rate 66 05/18/22 00:37 Respiratory Rate 16 05/18/22 00:37 Blood Pressure 130/64 05/18/22 00:37 Pulse Oximetry 100 05/18/22 00:37 Oxygen Delivery Room Air 05/18/22 00:37 MDM - URI/Sore Throat MDM Narrative Medical decision making narrative: COVID test came back negative. However clinically she is here asked like she has COVID. She got respiratory symptoms and loss of smell and taste. I told her that it could be early and therefore it is a false negative at this time. Recommend she do a home test in 24 to 48 hours. Lab Data Labs: Lab Results 05/18/22 Range/Units 00:41 SARS-CoV-2 RNA (RT-PCR) Negat
[2022-05-18 01:34] LABS: SARS-CoV-2 RNA PCR Negative
[2022-05-18 01:48] VITALS: BP 120/64; PULSE 82; RESP 16; O2SAT 100
== END 2022-05-18 01:49 | disposition home or self-care (01) ==
PROVIDERS: Emergency Provider Emergency Medicine; PCP Emergency Medicine
DX: O99.512 Diseases of the respiratory system complicating pregnancy, second trimester (principal); J06.9 Acute upper respiratory infection, unspecified; Z20.822 Contact with and (suspected) exposure to COVID-19; J45.909 Unspecified asthma, uncomplicated; Z28.310 Unvaccinated for COVID-19; Z3A.25 25 weeks gestation of pregnancy
CPT/HCPCS: 99283; C9803; U0003; U0005